=== PATIENT | male | born 1990 | race Caucasian/White ===

== ENCOUNTER 2019-05-20 22:35 | Emergency (ER) | payer SELFPAY ==
[2019-05-20] MEDS ORDERED: Ibuprofen TAB* 400 MG PO ONE (22:42)
--- NOTE | 2019-05-20 22:42 | ED ---
Upper Extremity Pain - HPI Summary HPI Summary: Patient is a 28 y/o M presenting to [facility] with complaints of LUE pain secondary to fall. He states that he tripped over a suitcase and attempted to catch himself. However, he was unable to do so and landed on his left arm. On triage, pain is rated 8/10, movement and palpation is noted to aggravate Sx. Hx of thyroid disease, patient is on levothyroxine. Home medications and allergies are reviewed. - History of Current Complaint Stated Complaint: LT ARM INJURY PER PT Time Seen by Provider: 05/20/19 22:38 Hx Obtained From: Patient Mechanism Of Injury: Fall From A Standing Position Onset/Duration: Still Present Timing: Constant Severity Currently: Severe Pain Location: Arm - left Aggravating Factor(s): Movement, Other - palpation Alleviating Factor(s): Nothing Associated Signs & Symptoms: Positive: Negative - Allergies/Home Medications Home Medications: Home Medications Levothyroxine Sodium 100 mcg PO QAM 05/20/19 [History Confirmed 05/20/19] PMH/Surg Hx/FS Hx/Imm Hx Endocrine/Hematology History: Reports: Hx Thyroid Disease Sensory History: Denies: Hx Legally Blind, Hx Deafness Opthamlomology History: Denies: Hx Legally Blind EENT History: Denies: Hx Deafness - Family History Known Family History: Negative: Blood Disorder - Social History Alcohol Use: Weekly Substance Use Type: Reports: None Smoking Status (MU): Former Smoker Review of Systems Negative: Fever - on vitals, temp is 98.9 F Musculoskeletal: Other - positive - left arm pain, fall All Other Systems Reviewed And Are Negative: Yes Physical Exam - Summary Physical Exam Summary: Appearance: Well-appearing, Well-nourished, lying in bed comfortable Skin: Warm, dry, no obvious rash Eyes: sclera anicteric, no conjunctival pallor ENT: mucous membranes moist Neck: deferred Respiratory: No signs of respiratory distress Cardiovascular: Appears well perfused, pulses are nml Abdomen: deferred Musculoskeletal: Left wrist does not appear significantly swollen and is without deformity. There is tenderness at left dorsal wrist and pain with ROM of wrist. Left elbow with obvious swelling to the radial head and olecranon area. He is unable to fully extend the elbow. No neurovascular deficits noted. Neurological: Awake and alert, mentation is normal, speech is fluent and appropriate Psychiatric: affect is normal, does not appear anxious or depressed Triage Information Reviewed: Yes Vital Signs Reviewed: Yes Procedures - Sedation Patient Received Moderate/Deep Sedation with Procedure: No Diagnostics - Laboratory Lab Statement: Any lab studies that have been ordered have been reviewed, and results considered in the medical decision making process. - Radiology LEFT ELBOW X-RAY Radiology Interpretation Completed By: ED Physician Summary of Radiographic Findings: No acute fracture, pending official report. LEFT WRIST X-RAY Radiology Interpretation Completed By: ED Physician Summary of Radiographic Findings: No acute fracture, pending official report. Re-Evaluation - Re-Evaluation First Eval Re-Evaluation Time: 23:14 Comment: X-rays were discussed with the patient, patient to be discharged to home. If patient continues to have significant pain or decreased ROM, patient will follow up with ortho. Course/Dx - Course Course Of Treatment: Patient is a 28 y/o M presenting to [facility] with complaints of LUE pain secondary to fall. He states that he tripped over a suitcase and attempted to catch himself. However, he was unable to do so and landed on his left arm. On triage, pain is rated 8/10, movement and palpation is noted to aggravate Sx. Hx of thyroid disease, patient is on levothyroxine. Left wrist does not appear significantly swollen and is without deformity. There is tenderness at left dorsal wrist and pain with ROM of wrist. Left elbow with obvious swelling to the radial head and olecranon area. He is unable to fully extend the elbow. No neurovascular deficits noted. During ED course, patient received Motrin 400 mg PO. Left elbow and wrist X-rays are negative for fracture. X-rays were discussed with the patient, patient to be discharged to home. If patient continues to have significant pain or decreased ROM, patient will follow up with ortho. - Diagnoses Provider Diagnoses: Left wrist sprain, Sprain of left elbow Discharge ED - Sign-Out/Discharge Documenting (check all that apply): Patient Departure - discharge - Discharge Plan Condition: Stable Disposition: HOME Patient Education Materials: Elbow Sprain (ED), Wrist Sprain (ED) Referrals: Martha Waite MD [Medical Doctor] - Additional Instructions: I would give this a week to see how you feel. If you still have significant pain and don't have normal range of motion, you should see an orthopedic surgeon for further evaluation. I do not see any fractures in the bones of the elbow or wrist, but the films will be over read by one of our radiologists in the morning and we will call you if there is a significant discrepancy. - Billing Disposition and Condition Condition: STABLE Disposition: Home - Attestation Statements Document Initiated by Ganga: Yes Documenting Scribe: MICHELLE CANO Provider For Whom Ganga is Documenting (Include Credential): IVONNE GREGORY MD Scribe Attestation: I, MICHELLE CANO, scribed for IVONNE GREGORY MD on 05/21/19 at 0536. Scribe Documentation Reviewed: Yes Provider Attestation: The documentation as recorded by the MICHELLE velez accurately reflects the service I personally performed and the decisions made by me, IVONNE GREGORY MD Status of Scribe Document: Viewed
[2019-05-20 23:48] VITALS: BP 154/83
--- NOTE | 2019-05-21 11:10 | ED ---
Imaging and Labs Follow Up Follow Up Type: Imaging Imaging Result: IMPRESSION: PROBABLE NONDISPLACED FRACTURE OF THE RADIAL NECK. FINDINGS WERE DISCUSSED WITH ELIZABETH PERALTA IN THE EMERGENCY DEPARTMENT AT APPROXIMATELY 7:05 AM ON MAY 21, 2019.. R3 Preliminary Imaging Read R3 Patient Communication/Plan: Pt. seen for elbow and wrist injury. Placed in sling. Final report shows questionable nondisplaced proximal radial fx. Pt. was given ortho f.u. Attempted to call pt. numerous times today but the phone number listed does not connect. No other numbers listed. Will send letter. Provider Diagnoses: Left wrist sprain, Sprain of left elbow
== END 2019-05-20 23:47 | disposition home or self-care (01) ==
LOC: ED 22:35
DX: S63.502A Unspecified sprain of left wrist, initial encounter (principal); S53.402A Unspecified sprain of left elbow, initial encounter; W18.09XA Striking against other object with subsequent fall, initial encounter; Y92.9 Unspecified place or not applicable; E07.9 Disorder of thyroid, unspecified; Z87.891 Personal history of nicotine dependence
CPT/HCPCS: 99282; A9270-GY